=== PATIENT | male | born 1960 | race Two or more races ===

== ENCOUNTER → 2025-02-09 | Emergency (ER) | payer BC ==
[~2025-02-09] VITALS: Ht 182.9 cm; Wt 86.2 kg
[~2025-02-09] MED LIST: NOVOLIN 70100 UNIT/2; PIPERACILLIN/TAZOBACTAM SODIUM 3.375 GM VIAL IV STA
[2025-02-09 12:53] LABS: BASO % 1.0 % (0.1-1.2); EOS # 0.02 (0.04-0.54); EOS % 0.5 % (0.7-7.0); LYMPH # 0.57 (1.18-3.74); LYMPH % 14.5 % (19.3-53.1); MEAN PLATELET VOLUME 10.20 fl (9.4-12.4); MONO # 0.56 (0.24-0.82); NEUT # 2.73 (1.56-6.13); NEUT % 69.5 % (34.0-71.1); RED CELL DISTRIBUTION WIDTH 13.2 % (11.6-14.4)
[2025-02-09 12:54] LABS: MONO % 14.2 % (4.7-12.5)
[2025-02-09 13:08] LABS: INR 1.0
[2025-02-09 13:13] LABS: ALT/SGPT 37.0 U/L (12-78); AST/SGOT 20.0 U/L (15-37); BILIRUBIN TOTAL 0.91 mg/dL (0.3-1.2); BUN CREA RATIO 17.0 (7.0-25.0); CREATININE SERUM 1.39 mg/dL (0.70-1.30); GFR 51.61; GLOBULINA 4.0 G/DL (2.4-3.5); GLUCOSE FASTING 151.0 mg/dL (65-100); OSMOLALITY SERUM 284.0 MOSM/KG (275-295)
== END | disposition left against medical advice (07) ==
LOC: ER 11:16
PROVIDERS: General Practice
DX: L97.518 Non-pressure chronic ulcer of other part of right foot with other specified severity (principal)